=== PATIENT | female | born 1980 | race Hispanic/Latino ===

== ENCOUNTER 2016-08-02 13:25 | Emergency (ER) | payer OTHER ==
[~2016-08-02] VITALS: Ht 148.6 cm; Wt 81.8 kg
[~2016-08-02 13:25] MED LIST: AMT50T PO; BUSP5TAB3 PO; LEVO75TA4 PO; NPR500T PO; NYST1POW23 MC
[2016-08-02 13:27] VITALS: BP 147/103; PULSE 76; RESP 18; O2SAT 100
[2016-08-02] MEDS ORDERED: LEVO125T6 PO (13:32)
[2016-08-02] MEDS ORDERED: NPR500T PO (13:32)
[2016-08-02] MEDS ORDERED: 0.9% Sodium Chloride 1,000 ML IV ONE (14:23)
--- NOTE | 2016-08-02 14:33 | ED.REPORT ---
HPI-Abd Pain F Under 39 Date of Service Aug 02, 2016 ED Provider: Hugh Carlos PA-C Purvi is a 35-year-old female with chief complaint of abdominal pain. She locates the pain in her left upper quadrant. States it began insidiously approximately 1-1/2 weeks ago and describes it as stabbing. She states that the pain is aggravated by breathing or coughing, which she does often. She states she has a one-year history of chronic cough productive of clear sputum without blood. She admits to shortness of breath, leg swelling worse on the right, chills, diarrhea, dysuria. Has a history of a hysterectomy for which she was prescribed estrogen pills, but she states she does not take them. Denies measured fever, hematuria, vomiting. Nursing Notes Stated Complaint: ABDOMINAL PAIN/LEFT SIDE SHARP PAINS Chief Complaint: Female Abdominal Pain Nursing Notes Reviewed: Yes Allergies: Coded Allergies: No Known Allergies (Verified Allergy, Unknown, 08/02/16) Scheduled Amitriptyline (Amitriptyline) 50 Mg Tab 50 MG PO HS Levothyroxine (Levothyroxine) 125 Mcg Tablet 125 MCG PO DAILY Naproxen (Naproxen) 500 Mg Tab 500 MG PO BID General Time Seen by MD: 13:33 Chief Complaint Abdominal pain Past Medical History Past Medical History Hx of kidney stones Hx of UTIs Endometriosis Anxiety Hypothyroidism Past Surgical History Shoulder surgery Endometrial biopsy Total laparoscopic hysterectomy with bilateral salpingo-oophorectomy. Cystoscopy of bladder Smoking History Unknown if Ever Smoker Review of Systems General: Admits chills, denies fever or malaise. HEENT: Denies congestion, headache, sore throat. Respiratory: Admits cough, shortness of breath. Denies wheezing Cardiovascular: Denies chest pain, palpitations. Gastrointestinal: Admits abdominal pain, diarrhea. Denies vomiting Genitourinary: Admits dysuria. Denies hematuria, vaginal bleeding/discharge. Otherwise as noted in HPI. Physical Exam General: Well appearing, well developed, obese, no acute distress. Head: Atraumatic, normocephalic. Eyes: No scleral icterus or injection. No discharge. Vision grossly intact. ENT: Voice clear, hearing grossly intact. Respiratory: Regular rate and rhythm. Breath sounds present, clear to auscultation and equal bilaterally. No respiratory distress. No increased work of breathing, speaks in complete sentences. Cardiovascular: Regular rate and rhythm, without murmur, gallop or rub. No pedal edema. Gastrointestinal: Obese abdomen tender in right upper, left lower and right lower quadrants without guarding or rebound. Bowel sounds normoactive. Skin: Warm and dry. Neurological: Grossly nonfocal. Psychological: Alert and oriented. Speech appropriate, linear and logical. Behavior appropriate. Initial Vital Signs Vital Signs (First) Date Time Temp Pulse Resp B/P Pulse Ox O2 Delivery O2 Flow Rate FiO2 08/02/16 13:27 36.7 76 18 147/103 100 Room Air Initial VS: Reviewed, Vital signs abnormal (elevated blood pressure) Interpretation & Diagnostics Interpretation & Diagnostics: PROCEDURE: X-RAY CHEST ONE VIEW, PORTABLE ([id number]) INDICATIONS: cough, chest pain IMPRESSION: No acute cardiopulmonary disease. Lab Results Interpretation Result Diagram: 08/02/16 1431 08/02/16 1431 Test 08/02/16 14:31 08/02/16 14:32 White Blood Count 7.9th/mm3 (3.8-10.1) Red Blood Count 4.96mil/mm3 (3.90-5.20) Hemoglobin 14.3g/dL (12.0-15.6) Hematocrit 42.9% (35.0-46.0) Mean Corpuscular Volume 86.5fL (81-100) Mean Corpuscular Hemoglobin 28.8pg (27.0-35.0) Mean Corpuscular Hemoglobin Concent 33.3% (32.0-37.0) Red Cell Distribution Width 13.3% (12.3-15.4) Platelet Count 319bil/L (150-400) Neutrophils (%) (Auto) 53.4% (40-74) Lymphocytes (%) (Auto) 35.9% (14-46) Monocytes (%) (Auto) 6.9% (4-12) Eosinophils (%) (Auto) 2.9% (0-5) Basophils (%) (Auto) 0.6% (0-3) Sodium Level 142mEq/L (134-144) Potassium Level 4.0mEq/L (3.5-5.2) Chloride Level 103mEq/L (97-108) Carbon Dioxide Level 23mmol/L (18-29) Blood Urea Nitrogen 8mg/dL (6-20) Creatinine 0.67mg/dL (0.57-1.00) Estimat Glomerular Filtration Rate 143mL/min (>59) Glucose Level 98mg/dL (60-99) Calcium Level 9.8mg/dL (8.5-10.1) Total Bilirubin 0.3mg/dL (0.0-1.2) Aspartate Amino Transf (AST/SGOT) 46U/L (0-50) Alanine Aminotransferase (ALT/SGPT) 61U/L (0-32) Alkaline Phosphatase 98U/L (25-150) Total Protein 7.9g/dL (6.4-8.4) Albumin 4.2g/dL (3.4-5.0) Lipase 36U/L (13-60) Urine Color Yellow (YELLOW) Urine Appearance Hazy (CLEAR,HAZY) Urine pH 7.0 (5.0-8.0) Urine Specific [place] 1.010 (1.003-1.035) Urine Protein Negativemg/dL (NEG,TRACE) Urine Glucose (UA) Negativemg/dL (NEGATIVE) Urine Ketones Negativemg/dL (NEGATIVE) Urine Occult Blood Trace (NEGATIVE) Urine Nitrite Negative (NEGATIVE) Urine Bilirubin Negative (NEGATIVE) Urine Urobilinogen Normalmg/dL (NORMAL) Urine Leukocyte Esterase Negative (NEGATIVE) Urine RBC 3-10/hpf (0-2) Urine WBC 0-5/hpf (0-5) Urine Epithelial Cells Few/hpf (NONE-MOD) Urine Crystals None seen (NONE SEEN) Urine Bacteria Few/hpf (NONE-FEW) Urine Hyaline Casts None/lpf (NONE) Urine Granular Casts None seen (NONE SEEN) Urine Waxy Casts None seen (NONE SEEN) Urine Red Blood Cell Casts None seen (NONE SEEN) Urine White Blood Cell Casts None seen (NONE SEEN) Urine Mucus None seen (None Seen) Urine Trichomonas None seen (NONE SEEN) Urine Yeast None (NONE SEEN) Urinalysis Comment None Urine Culture Reflexed Not indicated CT Abd / Pelvis Interpretation PROCEDURE: CT KUB ([id number]) INDICATIONS: left upper quadrant pain, hematuria IMPRESSION: 1. No evidence of urinary tract obstruction. 2. Small nonobstructing bilateral renal calculi. 3. No explanation for left flank pain. 4. Hepatic steatosis. Interpretation / Wet Read by: Interpret - Radiologist Re-Eval/Medical Decision Med Decision/Clinical Course Med Decision/Clinical Course: I discussed this case with Dr. Lott. 35-year-old female with a history of kidney stones presents with a chief complaint of left upper quadrant abdominal pain. She states the pain began seriously about 1-1/2 weeks ago. The pain is always there is aggravated by breathing or coughing. This patient has had a chronic cough for 1 year. Physical examination reveals mild global abdominal tenderness, most prominent in left upper quadrant without guarding or rebound. CBC and CMP are essentially normal. Urinalysis reveals a small amount of blood. Chest x-ray is normal, CT KUB reveals bilateral nonobstructing renal calculi as well as hepatic steatosis. She is PERC negative, denying history of blood clots, recent trauma or surgery, hemoptysis, exogenous estrogen. This point I cannot explain her abdominal pain. I am reassured that this is unlikely to be pneumonia, PE, pleural effusion, pancreatitis, nephrolithiasis, pyelonephritis, diverticulitis, traumatic. I discussed this with the patient. She is comfortable being discharged home for watchful waiting. She will arrange follow-up with her primary care provider tomorrow. We also discussed the incidental findings on her CT. Advised [id number] analgesia provided emergent return precautions. Patient understands and agrees with the plan. Discharge & Departure Primary Impression: Abdominal pain Abdominal location: left upper quadrant Qualified Code: R10.12 - Left upper quadrant pain Additional Impressions: Hepatic steatosis Renal calculus, bilateral Disposition: Home Discharge Condition Condition: Stable Patient Instructions: Acute Abdominal Pain (ED) Additional Instructions: Evaluation for abdominal pain in the emergency department. History, physical, blood tests, urinalysis, chest x-ray and CT scan are reassuring that your pain is not caused by an immediately dangerous condition. Although I cannot explain why you are feeling this pain, I believe you are stable and safe to be discharged to home. Continue taking your naproxen daily. You can add 1000 mg of acetaminophen ( Tylenol) every 6 hours. These drugs can be taken at the same time for more severe pain. Please contact Dr. Cruz tomorrow to arrange follow-up in the near future. Return to emergency department for any new or worsening symptoms including increasing pain, fever, repeated vomiting, blood in your stool or urine. Referrals: Antonio Low DO EDSupervising Provider for APC: Vipul Lott MD copies to: Antonio Low Seth PA-C Aug 02, 2016 14:33
[2016-08-02 14:43] LABS: APPEARANCE,URINE HAZY (CLEAR,HAZY); COLOR,URINE YELLOW (YELLOW); OCCULT BLOOD,URINE TRACE (NEGATIVE); UROBILINOGEN,URINE NORMAL (NORMAL)
--- NOTE | 2016-08-02 14:47 | DRSVH ---
PROCEDURE: X-RAY CHEST ONE VIEW, PORTABLE ([id number]) INDICATIONS: cough, chest pain TECHNIQUE: One view of the chest was acquired. COMPARISON: [facility], CR, XR CHEST 2VW, 12/06/2015, 11:13. [facility], C R, CHEST 2VW, 10/23/2013, 9:31. FINDINGS: Surgical changes and devices: None. Lungs and pleura: No pleural effusions or pneumothorax. Lungs are clear. Mediastinum: Mediastinal contours appear normal. Heart size is normal. Bones and chest wall: No suspicious bony lesions. Overlying soft tissues appear unremarkable. IMPRESSION: No acute cardiopulmonary disease. Dictated by: Bakari Pena RRA Interpreted: Kathryn Vines MD on 08/02/2016 at 14:46 Transcribed by: LILY on 08/02/2016 at 14:46 Approved by: Kathryn Vines MD, PhD on 08/02/2016 at 16:28
[2016-08-02 15:11] LABS: BASOPHILS % (AUTO) 0.6 % (0-3); EOSINOPHILS % (AUTO) 2.9 % (0-5); MONOCYTES % (AUTO) 6.9 % (4-12); Mean Corpuscular Hemoglobin 28.8 pg (27.0-35.0); Mean Corpuscular Volume 86.5 fL (81-100); NEUTROPHILS % (AUTO) 53.4 % (40-74); Platelet Count 319 bil/L (150-400)
--- NOTE | 2016-08-02 16:56 | DRSVH ---
PROCEDURE: CT KUB ([id number]) INDICATIONS: left upper quadrant pain, hematuria TECHNIQUE: Noncontrast 5 mm thick sections acquired from the diaphragms to the symphysis. 5 mm thick coronal an d sagittal reformats were then performed. For radiation dose reduction, the following was used: aut omated exposure control, adjustment of mA and/or kV according to patient size. COMPARISON: [facility], CT, KUB - CT ([facility]), 11/04/2013, 15:52. FINDINGS: Image quality: Excellent. Lung bases: Lung bases are clear. Heart size is normal. Urinary system: Both kidneys are normal in size. There is a 2 mm diameter nonobstructing calculus wi thin the right interpolar kidney anteriorly. There is a 1-2 mm diameter nonobstructing calculus withi n the inferior pole left kidney. There is a low density focus within the interpolar left kidney measu ring 15 mm, which demonstrates curvilinear calcifications at its posterior aspect, as before. No hydr onephrosis or perinephric fat stranding. Both ureters appear non-dilated throughout their expected c ourses. Bladder wall thickness is normal; no calcified bladder stones. Other solid organs: Liver is enlarged, measuring 17.9 cm craniocaudal, and demonstrates diffusely dec reased density. Spleen is within normal limits on noncontrast imaging Gallbladder is within normal li mits. Pancreas is normal in contours. No adrenal nodules. Peritoneum and bowel: Unenhanced bowel loops demonstrate normal wall thickness and caliber. No free fluid or air. Possible normal-appearing appendix in the subhepatic location. Nodes and vessels: No retroperitoneal or mesenteric adenopathy by size criteria. Aorta and inferior vena cava are normal in caliber. Abdominal wall: No ventral hernias. Pelvis: No free pelvic fluid. No inguinal hernias or adenopathy. Bones: No suspicious bony lesions. No vertebral body compression fractures. IMPRESSION: 1. No evidence of urinary tract obstruction. 2. Small nonobstructing bilateral renal calculi. 3. No explanation for left flank pain. 4. Hepatic steatosis. Dictated by: Hilario Ruiz M.D. on 08/02/2016 at 16:51 Approved by: Hilario Ruiz M.D. on 08/02/2016 at 16:55
[2016-08-02 18:05] VITALS: BP 124/66; PULSE 68; O2SAT 96
== END 2016-08-02 18:06 | disposition home or self-care (01) ==
LOC: SED 13:25
DX: R10.12 Left upper quadrant pain (principal); K76.0 Fatty (change of) liver, not elsewhere classified; N20.0 Calculus of kidney; E03.9 Hypothyroidism, unspecified
CPT/HCPCS: 36415; 71010; 74176; 80053; 81000; 83690; 85025; 96361; 96374; 99285; J1885; J7030